=== PATIENT | male | born 1955 | race Caucasian/White ===

== ENCOUNTER 2018-03-16 13:37 | Emergency (ER) | payer OTHER ==
[2018-03-16] MEDS: NS 500 ML IV (14:04)
[2018-03-16 14:06] LABS: BASO % 0.1 % (0.0-1.0); HEMATOCRIT 41.6 % (42.0-52.0); IMMATURE GRANULOCYTE % 0.5 % (0-3.0); LYMPH # 1.4 10^3/uL (1.5-4.5); LYMPH % 8.2 % (24.0-44.0); MEAN CORPUSCULAR HEMOGLOBIN 30.2 pg (27.0-33.0); MEAN CORPUSCULAR HGB CONC 33.7 g/dl (32.0-36.5); MEAN CORPUSCULAR VOLUME 89.7 fl (80.0-96.0); MONO # 1.9 10^3/uL (0.0-0.8); MONO % 11.4 % (0.0-5.0); NEUTROPHILS # 13.5 10^3/uL (1.8-7.7); NEUTROPHILS % 79.8 % (36.0-66.0); PLATELET COUNT, AUTOMATED 274 10^3/uL (150-450); RED BLOOD COUNT 4.64 10^6/uL (4.30-6.10); RED CELL DISTRIBUTION WIDTH 13.8 % (11.5-14.5); WHITE BLOOD COUNT 16.9 10^3/uL (4.0-10.0)
[2018-03-16 14:26] LABS: ALBUMIN 3.3 GM/DL (3.2-5.2); ALBUMIN/GLOBULIN RATIO 0.77 (1.00-1.93); ALKALINE PHOSPHATASE 78 U/L (45-117); ALT/SGPT 96 U/L (12-78); ANION GAP 7 MEQ/L (8-16); AST/SGOT 527 U/L (7-37); BILIRUBIN,DIRECT 0.1 MG/DL (0.0-0.2); BILIRUBIN,TOTAL 0.8 MG/DL (0.2-1.0); BLOOD UREA NITROGEN 14 MG/DL (7-18); CALCIUM LEVEL 8.5 MG/DL (8.8-10.2); CARBON DIOXIDE LEVEL 27 MEQ/L (21-32); CHLORIDE LEVEL 104 MEQ/L (98-107); CREATININE FOR GFR 0.85 MG/DL (0.70-1.30); GLOMERULAR FILTRATION RATE > 60.0 (>49); GLUCOSE, FASTING 139 MG/DL (70-100); SODIUM LEVEL 138 MEQ/L (136-145); TOTAL PROTEIN 7.6 GM/DL (6.4-8.2)
[2018-03-16 14:36] LABS: CK-MB VALUE MASS 284.7 NG/ML (<3.6); CPK CREATINE PHOSPHOKINASE 2963 U/L (39-308)
[2018-03-16 15:28] LABS: NT-PRO BNP 5494 PG/ML (<125)
[2018-03-16] MEDS: ASPIRIN 81 MG CHEW TABLET PO (16:08)
[2018-03-16] MEDS: FUROSEMIDE 20 MG/2 ML VIAL (J1940) IV (16:08)
== END 2018-03-16 16:37 | disposition short-term general hospital (02) ==
LOC: M ED 13:37
DX: I21.3 ST elevation (STEMI) myocardial infarction of unspecified site (principal); Z79.899 Other long term (current) drug therapy; Z79.82 Long term (current) use of aspirin; Z79.01 Long term (current) use of anticoagulants; F17.210 Nicotine dependence, cigarettes, uncomplicated
CPT/HCPCS: J1940

== ENCOUNTER 2018-04-10 11:45 | Inpatient (IN) | payer OTHER, MEDICAID ==
[2018-04-10 12:54] LABS: BASO % 0.3 % (0.0-1.0); EOS # 0.2 10^3/uL (0.0-0.50); EOS % 1.9 % (0.0-3.0); HEMATOCRIT 35.6 % (42.0-52.0); HEMOGLOBIN 12.2 g/dl (13.5-17.5); IMMATURE GRANULOCYTE % 0.2 % (0-3.0); LYMPH # 2.4 10^3/uL (1.5-4.5); MEAN CORPUSCULAR HEMOGLOBIN 29.8 pg (27.0-33.0); MEAN CORPUSCULAR HGB CONC 34.3 g/dl (32.0-36.5); MONO % 10.5 % (0.0-5.0); NEUTROPHILS # 5.9 10^3/uL (1.8-7.7); NEUTROPHILS % 62.1 % (36.0-66.0); PLATELET COUNT, AUTOMATED 313 10^3/uL (150-450); RED BLOOD COUNT 4.09 10^6/uL (4.30-6.10); RED CELL DISTRIBUTION WIDTH 13.2 % (11.5-14.5); WHITE BLOOD COUNT 9.5 10^3/uL (4.0-10.0)
[2018-04-10 13:03] LABS: INR 1.28; PROTHROMBIN TIME 16.2 SECONDS (12.1-14.4)
[2018-04-10 13:04] LABS: PARTIAL THROMBOPLASTIN TIME 33.2 SECONDS (25.4-37.6)
[2018-04-10 13:06] LABS: ALBUMIN 3.2 GM/DL (3.2-5.2); ALBUMIN/GLOBULIN RATIO 0.68 (1.00-1.93); ALKALINE PHOSPHATASE 81 U/L (45-117); ALT/SGPT 22 U/L (12-78); ANION GAP 10 MEQ/L (8-16); AST/SGOT 15 U/L (7-37); BILIRUBIN,DIRECT 0.2 MG/DL (0.0-0.2); BILIRUBIN,TOTAL 0.8 MG/DL (0.2-1.0); BLOOD UREA NITROGEN 30 MG/DL (7-18); CALCIUM LEVEL 8.8 MG/DL (8.8-10.2); CARBON DIOXIDE LEVEL 22 MEQ/L (21-32); CHLORIDE LEVEL 105 MEQ/L (98-107); CPK CREATINE PHOSPHOKINASE 54 U/L (39-308); CREATININE FOR GFR 0.89 MG/DL (0.70-1.30); GLOMERULAR FILTRATION RATE > 60.0 (>49); GLUCOSE, FASTING 103 MG/DL (70-100); SODIUM LEVEL 137 MEQ/L (136-145); TOTAL PROTEIN 7.9 GM/DL (6.4-8.2); TROPONIN I 0.19 NG/ML (< 0.10)
[2018-04-10 13:12] LABS: CK-MB VALUE MASS 1.3 NG/ML (<3.6); NT-PRO BNP 18358 PG/ML (<125)
[2018-04-10] MEDS: FUROSEMIDE 40 MG/4 ML VIAL (J1940) IV (14:37)
[2018-04-10] MEDS: PENICILLIN V POTASSIUM 500 MG TAB PO ×3 (14:37→21:26)
[2018-04-10] MEDS ORDERED: ONDANSETRON 4 MG TAB (S0181) PO (15:15)
[2018-04-10 18:57] LABS: CPK CREATINE PHOSPHOKINASE 50 U/L (39-308); TROPONIN I 0.18 NG/ML (< 0.10)
[2018-04-10 18:58] LABS: CK-MB VALUE MASS 1.1 NG/ML (<3.6)
[2018-04-10] MEDS ORDERED: RAMIPRIL 1.25 MG CAP PO (21:00)
[2018-04-10] MEDS ORDERED: CARVedilol 3.125 MG TAB PO (21:00)
[2018-04-10] MEDS: RIVAROXABAN 20 MG TAB (XARELTO) PO (21:24)
[2018-04-10] MEDS: ATORVASTATIN 20 MG TAB PO (21:25)
[2018-04-10] MEDS: PERCOCET 5MG/325MG TAB PO (21:29)
[2018-04-11] MEDS: PERCOCET 5MG/325MG TAB PO ×3 (01:57→20:59)
[2018-04-11 02:42] LABS: CK-MB VALUE MASS 1.5 NG/ML (<3.6); CPK CREATINE PHOSPHOKINASE 45 U/L (39-308); MB/CK RELATIVE INDEX 3.33 (< OR =4); TROPONIN I 0.18 NG/ML (< 0.10)
[2018-04-11 05:50] LABS: BASO % 0.4 % (0.0-1.0); EOS # 0.3 10^3/uL (0.0-0.50); EOS % 2.7 % (0.0-3.0); HEMATOCRIT 35.2 % (42.0-52.0); HEMOGLOBIN 12.2 g/dl (13.5-17.5); IMMATURE GRANULOCYTE % 0.2 % (0-3.0); LYMPH # 2.5 10^3/uL (1.5-4.5); LYMPH % 27.5 % (24.0-44.0); MEAN CORPUSCULAR HEMOGLOBIN 29.8 pg (27.0-33.0); MEAN CORPUSCULAR HGB CONC 34.7 g/dl (32.0-36.5); MEAN CORPUSCULAR VOLUME 86.1 fl (80.0-96.0); MONO # 0.9 10^3/uL (0.0-0.8); MONO % 10.1 % (0.0-5.0); NEUTROPHILS # 5.5 10^3/uL (1.8-7.7); NEUTROPHILS % 59.1 % (36.0-66.0); PLATELET COUNT, AUTOMATED 264 10^3/uL (150-450); RED BLOOD COUNT 4.09 10^6/uL (4.30-6.10); RED CELL DISTRIBUTION WIDTH 13.2 % (11.5-14.5); WHITE BLOOD COUNT 9.3 10^3/uL (4.0-10.0)
[2018-04-11 06:11] LABS: ANION GAP 10 MEQ/L (8-16); BLOOD UREA NITROGEN 30 MG/DL (7-18); CALCIUM LEVEL 8.5 MG/DL (8.8-10.2); CARBON DIOXIDE LEVEL 23 MEQ/L (21-32); CHLORIDE LEVEL 105 MEQ/L (98-107); CREATININE FOR GFR 0.86 MG/DL (0.70-1.30); GLOMERULAR FILTRATION RATE > 60.0 (>49); GLUCOSE, FASTING 96 MG/DL (70-100); MAGNESIUM LEVEL 2.4 MG/DL (1.8-2.4); POTASSIUM SERUM 3.4 MEQ/L (3.5-5.1); SODIUM LEVEL 138 MEQ/L (136-145)
[2018-04-11] MEDS: FUROSEMIDE 20 MG TAB PO (08:39)
[2018-04-11] MEDS: ASPIRIN 81 MG ENTERIC TAB PO (08:39)
[2018-04-11] MEDS: PENICILLIN V POTASSIUM 500 MG TAB PO (08:39)
[2018-04-11] MEDS: POTASSIUM CHLORIDE 10 MEQ SR TABLET PO (08:40)
[2018-04-11] MEDS: METOPROLOL SUCC *XL* 25MG TAB (TopROL *XL*) PO (08:47)
[2018-04-11] MEDS ORDERED: ENTRESTO 24-26MG TABLET (SACUBITRIL/VALSARTAN) PO (09:00)
[2018-04-11] MEDS ORDERED: FUROSEMIDE 40 MG/4 ML VIAL (J1940) IV (09:00)
[2018-04-11] MEDS ORDERED: ISOVUE-370 76% 100ML VIAL (Q9967) As Ordered (10:06)
[2018-04-11 10:59] LABS: CK-MB VALUE MASS 1.6 NG/ML (<3.6); CPK CREATINE PHOSPHOKINASE 48 U/L (39-308); MB/CK RELATIVE INDEX 3.33 (< OR =4); TROPONIN I 0.19 NG/ML (< 0.10)
[2018-04-11] MEDS ORDERED: AMPICILLIN SOD/SULBACTAM SOD 3 GM in D5W MINI-BAG PLUS 100 ML IV (12:00)
[2018-04-11] MEDS: AMPICILLIN SOD/SULBACTAM SOD 3 GM in D5W MINI-BAG PLUS 100 ML IV ×2 (15:40→21:02)
[2018-04-11] MEDS: RIVAROXABAN 20 MG TAB (XARELTO) PO (20:59)
[2018-04-11] MEDS: ATORVASTATIN 20 MG TAB PO (20:59)
[2018-04-11] MEDS: ENTRESTO 24-26MG TABLET (SACUBITRIL/VALSARTAN) PO (21:00)
[2018-04-12] MEDS: AMPICILLIN SOD/SULBACTAM SOD 3 GM in D5W MINI-BAG PLUS 100 ML IV ×2 (04:11→09:17)
[2018-04-12] MEDS: PERCOCET 5MG/325MG TAB PO ×2 (04:14→19:20)
[2018-04-12 06:13] LABS: BASO % 0.4 % (0.0-1.0); EOS # 0.1 10^3/uL (0.0-0.50); EOS % 1.4 % (0.0-3.0); HEMATOCRIT 34.3 % (42.0-52.0); HEMOGLOBIN 11.6 g/dl (13.5-17.5); IMMATURE GRANULOCYTE % 0.3 % (0-3.0); LYMPH # 1.4 10^3/uL (1.5-4.5); LYMPH % 14.3 % (24.0-44.0); MEAN CORPUSCULAR HEMOGLOBIN 29.7 pg (27.0-33.0); MEAN CORPUSCULAR HGB CONC 33.8 g/dl (32.0-36.5); MEAN CORPUSCULAR VOLUME 87.9 fl (80.0-96.0); MONO # 1.2 10^3/uL (0.0-0.8); MONO % 12.1 % (0.0-5.0); NEUTROPHILS # 7.1 10^3/uL (1.8-7.7); NEUTROPHILS % 71.5 % (36.0-66.0); PLATELET COUNT, AUTOMATED 235 10^3/uL (150-450); RED CELL DISTRIBUTION WIDTH 13.2 % (11.5-14.5); WHITE BLOOD COUNT 9.9 10^3/uL (4.0-10.0)
[2018-04-12 06:20] LABS: ANION GAP 10 MEQ/L (8-16); BLOOD UREA NITROGEN 22 MG/DL (7-18); CALCIUM LEVEL 8.4 MG/DL (8.8-10.2); CARBON DIOXIDE LEVEL 23 MEQ/L (21-32); CHLORIDE LEVEL 104 MEQ/L (98-107); CREATININE FOR GFR 0.73 MG/DL (0.70-1.30); GLOMERULAR FILTRATION RATE > 60.0 (>49); GLUCOSE, FASTING 100 MG/DL (70-100); MAGNESIUM LEVEL 2.4 MG/DL (1.8-2.4); POTASSIUM SERUM 3.7 MEQ/L (3.5-5.1); SODIUM LEVEL 137 MEQ/L (136-145)
[2018-04-12] MEDS: ASPIRIN 81 MG ENTERIC TAB PO (09:09)
[2018-04-12] MEDS: ENTRESTO 24-26MG TABLET (SACUBITRIL/VALSARTAN) PO ×2 (09:10→21:00)
[2018-04-12] MEDS: METOPROLOL SUCC *XL* 25MG TAB (TopROL *XL*) PO (09:10)
[2018-04-12] MEDS: FUROSEMIDE 20 MG TAB PO (09:17)
[2018-04-12] MEDS: ATORVASTATIN 20 MG TAB PO (21:00)
[2018-04-12] MEDS: AUGMENTIN 875 MG TAB PO (21:00)
[2018-04-12] MEDS: RIVAROXABAN 20 MG TAB (XARELTO) PO (21:01)
[2018-04-13] MEDS: ACETAMINOPHEN TAB 650MG DOSE (2X325MG) PO (00:03)
[2018-04-13 05:36] LABS: BASO % 0.4 % (0.0-1.0); EOS # 0.3 10^3/uL (0.0-0.50); EOS % 2.8 % (0.0-3.0); HEMATOCRIT 32.8 % (42.0-52.0); HEMOGLOBIN 11.1 g/dl (13.5-17.5); IMMATURE GRANULOCYTE % 0.4 % (0-3.0); LYMPH # 2.5 10^3/uL (1.5-4.5); LYMPH % 24.6 % (24.0-44.0); MEAN CORPUSCULAR HEMOGLOBIN 29.1 pg (27.0-33.0); MEAN CORPUSCULAR HGB CONC 33.8 g/dl (32.0-36.5); MEAN CORPUSCULAR VOLUME 85.9 fl (80.0-96.0); MONO # 1.4 10^3/uL (0.0-0.8); MONO % 13.5 % (0.0-5.0); NEUTROPHILS # 5.9 10^3/uL (1.8-7.7); NEUTROPHILS % 58.3 % (36.0-66.0); PLATELET COUNT, AUTOMATED 244 10^3/uL (150-450); RED BLOOD COUNT 3.82 10^6/uL (4.30-6.10); RED CELL DISTRIBUTION WIDTH 13.2 % (11.5-14.5); WHITE BLOOD COUNT 10.1 10^3/uL (4.0-10.0)
[2018-04-13 05:48] LABS: ANION GAP 9 MEQ/L (8-16); BLOOD UREA NITROGEN 19 MG/DL (7-18); CALCIUM LEVEL 8.1 MG/DL (8.8-10.2); CARBON DIOXIDE LEVEL 24 MEQ/L (21-32); CHLORIDE LEVEL 102 MEQ/L (98-107); CREATININE FOR GFR 0.72 MG/DL (0.70-1.30); GLOMERULAR FILTRATION RATE > 60.0 (>49); GLUCOSE, FASTING 89 MG/DL (70-100); MAGNESIUM LEVEL 2.2 MG/DL (1.8-2.4); POTASSIUM SERUM 3.3 MEQ/L (3.5-5.1); SODIUM LEVEL 135 MEQ/L (136-145)
[2018-04-13] MEDS: POTASSIUM CHLORIDE 10 MEQ SR TABLET PO ×2 (06:44→07:58)
[2018-04-13] MEDS: AUGMENTIN 875 MG TAB PO ×2 (09:17→21:02)
[2018-04-13] MEDS: ASPIRIN 81 MG ENTERIC TAB PO (09:17)
[2018-04-13] MEDS: ENTRESTO 24-26MG TABLET (SACUBITRIL/VALSARTAN) PO ×2 (09:17→21:02)
[2018-04-13] MEDS: FUROSEMIDE 20 MG TAB PO (09:17)
[2018-04-13] MEDS: METOPROLOL SUCC *XL* 25MG TAB (TopROL *XL*) PO (09:17)
[2018-04-13] MEDS: SPIRONOLACTONE 12.5MG PER 1/2 TABLET PO (11:23)
[2018-04-13] MEDS: PERCOCET 5MG/325MG TAB PO ×2 (12:19→18:40)
[2018-04-13] MEDS: ONDANSETRON 4MG/2ML VIAL (J2405) IV (12:19)
[2018-04-13] MEDS: ATORVASTATIN 20 MG TAB PO (21:02)
[2018-04-13] MEDS: PARoxetine 20 MG TAB PO (21:03)
[2018-04-13] MEDS: RIVAROXABAN 20 MG TAB (XARELTO) PO (21:03)
[2018-04-14 05:21] LABS: BASO % 0.3 % (0.0-1.0); EOS # 0.2 10^3/uL (0.0-0.50); EOS % 1.6 % (0.0-3.0); HEMATOCRIT 32.3 % (42.0-52.0); HEMOGLOBIN 10.8 g/dl (13.5-17.5); IMMATURE GRANULOCYTE % 0.2 % (0-3.0); LYMPH # 2.2 10^3/uL (1.5-4.5); LYMPH % 20.7 % (24.0-44.0); MEAN CORPUSCULAR HEMOGLOBIN 29.7 pg (27.0-33.0); MEAN CORPUSCULAR HGB CONC 33.4 g/dl (32.0-36.5); MEAN CORPUSCULAR VOLUME 88.7 fl (80.0-96.0); MONO # 1.3 10^3/uL (0.0-0.8); MONO % 12.4 % (0.0-5.0); NEUTROPHILS # 6.8 10^3/uL (1.8-7.7); NEUTROPHILS % 64.8 % (36.0-66.0); PLATELET COUNT, AUTOMATED 241 10^3/uL (150-450); RED BLOOD COUNT 3.64 10^6/uL (4.30-6.10); RED CELL DISTRIBUTION WIDTH 13.2 % (11.5-14.5); WHITE BLOOD COUNT 10.5 10^3/uL (4.0-10.0)
[2018-04-14 05:36] LABS: ANION GAP 9 MEQ/L (8-16); BLOOD UREA NITROGEN 22 MG/DL (7-18); CALCIUM LEVEL 8.3 MG/DL (8.8-10.2); CARBON DIOXIDE LEVEL 22 MEQ/L (21-32); CHLORIDE LEVEL 106 MEQ/L (98-107); CREATININE FOR GFR 0.69 MG/DL (0.70-1.30); GLOMERULAR FILTRATION RATE > 60.0 (>49); GLUCOSE, FASTING 102 MG/DL (70-100); MAGNESIUM LEVEL 2.2 MG/DL (1.8-2.4); POTASSIUM SERUM 4.1 MEQ/L (3.5-5.1); SODIUM LEVEL 137 MEQ/L (136-145)
[2018-04-14 07:57] LABS: C REACTIVE PROTEIN QUANTITATIV 9.65 MG/DL (0.00-0.30)
[2018-04-14] MEDS: FUROSEMIDE 20 MG TAB PO (09:02)
[2018-04-14] MEDS: ENTRESTO 24-26MG TABLET (SACUBITRIL/VALSARTAN) PO ×2 (09:02→21:00)
[2018-04-14] MEDS: AUGMENTIN 875 MG TAB PO ×2 (09:03→21:27)
[2018-04-14] MEDS: METOPROLOL SUCC *XL* 25MG TAB (TopROL *XL*) PO (09:03)
[2018-04-14] MEDS: SPIRONOLACTONE 12.5MG PER 1/2 TABLET PO (09:03)
[2018-04-14] MEDS: ASPIRIN 81 MG ENTERIC TAB PO (09:04)
[2018-04-14] MEDS: DOCUSATE SODIUM 100 MG CAP PO ×2 (09:47→21:28)
[2018-04-14] MEDS: ATORVASTATIN 20 MG TAB PO (21:27)
[2018-04-14] MEDS: RIVAROXABAN 20 MG TAB (XARELTO) PO (21:27)
[2018-04-14] MEDS: PARoxetine 20 MG TAB PO (21:27)
[2018-04-15] MEDS: ONDANSETRON 4MG/2ML VIAL (J2405) IV (04:54)
[2018-04-15 05:24] LABS: BASO % 0.4 % (0.0-1.0); EOS # 0.1 10^3/uL (0.0-0.50); EOS % 1.2 % (0.0-3.0); HEMATOCRIT 32.3 % (42.0-52.0); HEMOGLOBIN 11.1 g/dl (13.5-17.5); IMMATURE GRANULOCYTE % 0.3 % (0-3.0); LYMPH # 2.3 10^3/uL (1.5-4.5); LYMPH % 20.3 % (24.0-44.0); MEAN CORPUSCULAR HEMOGLOBIN 29.8 pg (27.0-33.0); MEAN CORPUSCULAR HGB CONC 34.4 g/dl (32.0-36.5); MEAN CORPUSCULAR VOLUME 86.6 fl (80.0-96.0); NEUTROPHILS # 7.7 10^3/uL (1.8-7.7); NEUTROPHILS % 68.8 % (36.0-66.0); PLATELET COUNT, AUTOMATED 267 10^3/uL (150-450); RED BLOOD COUNT 3.73 10^6/uL (4.30-6.10); RED CELL DISTRIBUTION WIDTH 13.2 % (11.5-14.5); WHITE BLOOD COUNT 11.2 10^3/uL (4.0-10.0)
[2018-04-15 05:35] LABS: ANION GAP 12 MEQ/L (8-16); BLOOD UREA NITROGEN 20 MG/DL (7-18); CALCIUM LEVEL 8.4 MG/DL (8.8-10.2); CARBON DIOXIDE LEVEL 20 MEQ/L (21-32); CHLORIDE LEVEL 105 MEQ/L (98-107); CREATININE FOR GFR 0.76 MG/DL (0.70-1.30); GLOMERULAR FILTRATION RATE > 60.0 (>49); GLUCOSE, FASTING 99 MG/DL (70-100); MAGNESIUM LEVEL 2.1 MG/DL (1.8-2.4); POTASSIUM SERUM 4.1 MEQ/L (3.5-5.1); SODIUM LEVEL 137 MEQ/L (136-145)
[2018-04-15] MEDS: SPIRONOLACTONE 12.5MG PER 1/2 TABLET PO (09:33)
[2018-04-15] MEDS: METOPROLOL SUCC *XL* 25MG TAB (TopROL *XL*) PO (09:33)
[2018-04-15] MEDS: ENTRESTO 24-26MG TABLET (SACUBITRIL/VALSARTAN) PO ×2 (09:33→21:02)
[2018-04-15] MEDS: ASPIRIN 81 MG ENTERIC TAB PO (09:33)
[2018-04-15] MEDS: DOCUSATE SODIUM 100 MG CAP PO ×2 (09:33→21:03)
[2018-04-15] MEDS: AUGMENTIN 875 MG TAB PO ×2 (09:34→21:02)
[2018-04-15] MEDS: FUROSEMIDE 20 MG TAB PO ×2 (12:25)
[2018-04-15] MEDS: ACETAMINOPHEN TAB 650MG DOSE (2X325MG) PO (17:28)
[2018-04-15] MEDS: ATORVASTATIN 20 MG TAB PO (21:02)
[2018-04-15] MEDS: RIVAROXABAN 20 MG TAB (XARELTO) PO (21:03)
[2018-04-15] MEDS: PARoxetine 20 MG TAB PO (21:03)
[2018-04-15] MEDS: AMIODARONE 200 MG TAB (PACERONE) PO ×2 (21:03→23:04)
[2018-04-15] MEDS: DOBUTamine HCL 500,000 MCG in APPROPRIATE DILUENT 1 EA IV (21:03)
[2018-04-15] MEDS ORDERED: AMIODARONE 150MG/3ML INJ (J0282) IVP (22:06)
[2018-04-15] MEDS: AMIODARONE HCL 150 MG in APPROPRIATE DILUENT 1 EA IV ×2 (22:11→23:05)
[2018-04-15] MEDS ORDERED: AMIODARONE HCL 150 MG/100 ML PREMIXED BAG (NEXTERONE) As Ordered (22:13)
[2018-04-16] MEDS: FUROSEMIDE 20 MG TAB PO (00:10)
[2018-04-16 05:50] LABS: BASO % 0.2 % (0.0-1.0); EOS % 0.2 % (0.0-3.0); HEMATOCRIT 30.5 % (42.0-52.0); HEMOGLOBIN 10.5 g/dl (13.5-17.5); IMMATURE GRANULOCYTE % 0.2 % (0-3.0); LYMPH # 2.2 10^3/uL (1.5-4.5); MEAN CORPUSCULAR HEMOGLOBIN 29.5 pg (27.0-33.0); MEAN CORPUSCULAR HGB CONC 34.4 g/dl (32.0-36.5); MEAN CORPUSCULAR VOLUME 85.7 fl (80.0-96.0); MONO % 10.5 % (0.0-5.0); NEUTROPHILS # 6.6 10^3/uL (1.8-7.7); NEUTROPHILS % 66.9 % (36.0-66.0); PLATELET COUNT, AUTOMATED 261 10^3/uL (150-450); RED BLOOD COUNT 3.56 10^6/uL (4.30-6.10); RED CELL DISTRIBUTION WIDTH 13.1 % (11.5-14.5); WHITE BLOOD COUNT 9.9 10^3/uL (4.0-10.0)
[2018-04-16 06:12] LABS: ANION GAP 11 MEQ/L (8-16); BLOOD UREA NITROGEN 19 MG/DL (7-18); CALCIUM LEVEL 8.2 MG/DL (8.8-10.2); CARBON DIOXIDE LEVEL 22 MEQ/L (21-32); CHLORIDE LEVEL 103 MEQ/L (98-107); CREATININE FOR GFR 0.74 MG/DL (0.70-1.30); GLOMERULAR FILTRATION RATE > 60.0 (>49); GLUCOSE, FASTING 110 MG/DL (70-100); SODIUM LEVEL 136 MEQ/L (136-145)
[2018-04-16] MEDS: AUGMENTIN 875 MG TAB PO (09:26)
[2018-04-16] MEDS: ASPIRIN 81 MG ENTERIC TAB PO (09:26)
[2018-04-16] MEDS: AMIODARONE 200 MG TAB (PACERONE) PO (09:26)
[2018-04-16] MEDS: DOCUSATE SODIUM 100 MG CAP PO (09:26)
[2018-04-16] MEDS: ENTRESTO 24-26MG TABLET (SACUBITRIL/VALSARTAN) PO (09:27)
[2018-04-16] MEDS: SPIRONOLACTONE 12.5MG PER 1/2 TABLET PO (09:27)
[2018-04-16] MEDS: METOPROLOL SUCC *XL* 25MG TAB (TopROL *XL*) PO (09:27)
[2018-04-16] MEDS: ACETAMINOPHEN TAB 650MG DOSE (2X325MG) PO (09:28)
== END 2018-04-16 10:58 | disposition short-term general hospital (02) | DRG 190 ==
LOC: M ED 11:45 → M ED INP 15:07 → M PCU 16:54
DX: I21.02 ST elevation (STEMI) myocardial infarction involving left anterior descending coronary artery (principal); I50.43 Acute on chronic combined systolic (congestive) and diastolic (congestive) heart failure; I47.2 Ventricular tachycardia; I51.3 Intracardiac thrombosis, not elsewhere classified; Z79.01 Long term (current) use of anticoagulants; K05.6 Periodontal disease, unspecified; F32.9 Major depressive disorder, single episode, unspecified; I25.10 Atherosclerotic heart disease of native coronary artery without angina pectoris; Z87.891 Personal history of nicotine dependence; Z79.82 Long term (current) use of aspirin; Z79.899 Other long term (current) drug therapy; I25.5 Ischemic cardiomyopathy